=== PATIENT | female | born 2000 | race Caucasian/White ===

== ENCOUNTER 2022-08-07 21:08 | Emergency (ER) | payer OTHER ==
[2022-08-07 21:27] VITALS: BP 117/69; PULSE 95; RESP 18; TEMP 98.3; BMI 32.9
== END 2022-08-07 22:57 | disposition home or self-care (01) ==
LOC: JER 21:08
DX: R07.0 Pain in throat (principal)
CPT/HCPCS: 0241U-QW; 87651; 99283-25

== ENCOUNTER 2022-12-10 09:01 | Emergency (ER) | payer OTHER ==
[2022-12-10 09:18] VITALS: BP 127/65; PULSE 96; RESP 16; TEMP 98.5; BMI 33.8
[2022-12-10] MEDS ORDERED: FLUORESCEIN NA 1 EA STRIP OU ONE (09:55)
== END 2022-12-10 11:05 | disposition home or self-care (01) ==
LOC: JERFT 09:01
DX: H57.89 Other specified disorders of eye and adnexa (principal)
CPT/HCPCS: 99283-25

== ENCOUNTER 2023-03-17 18:09 | Emergency (ER) | payer OTHER ==
[2023-03-17 18:38] VITALS: TEMP 98.4; BMI 32.0
[2023-03-17] MEDS ORDERED: ACETAMINOPHEN 1000 MG/100 ML BAG IVPB ONE (19:38)
[2023-03-17] MEDS ORDERED: SODIUM CHLORIDE 1,000 ML IV STA (19:38)
[2023-03-17] MEDS ORDERED: ACETAMINOPHEN INJECTION 100 ML IVPB ONE (19:45)
[2023-03-17 20:03] LABS: HCG,QUALITATIVE URINE Negative
[2023-03-17 20:04] LABS: EPI CELLS 13 /uL (0-25.1); HYALINE CASTS 7 /uL (0-3.1); PH,URINE 5.5 (5.0-8.0); URINE APPEARANCE CLEAR; URINE BACTERIA 2919 /uL (0-1359); URINE BILIRUBIN NEGATIVE (NEGATIVE); URINE COLOR YELLOW; URINE GLUCOSE (UA) NEGATIVE (NEGATIVE); URINE KETONE TRACE (NEGATIVE); URINE LEUK ESTERASE 1+ (NEGATIVE); URINE NITRITE NEGATIVE (NEGATIVE); URINE PROTEIN NEGATIVE (NEGATIVE); URINE RBC 25 /uL (0-23.9); URINE WBC 135 /uL (0-25.8)
[2023-03-17 20:27] LABS: BASO % 0.4 % (0-2.0); EOS % 0.5 % (0-4.5); HEMATOCRIT 36.9 % (32.4-45.2); HEMOGLOBIN 12.6 GM/dL (10.7-15.3); LYMPH % 33.1 % (8-40); MCH 27.3 pg (25.7-33.7); MCHC 34.1 g/dl (32.0-36.0); MEAN CELL VOLUME 80.1 fl (80-96); MEAN PLT VOLUME 9.6 fl (7.5-11.1); MONO % 7.1 % (3.8-10.2); NEUT % 58.9 % (42.8-82.8); PLATELET COUNT 236 10^3/uL (134-434); RBC 4.61 M/mm3 (3.60-5.2); RDW 14.9 % (11.6-15.6); WHITE BLOOD COUNT 7.7 K/mm3 (4.0-10.0)
[2023-03-17 20:48] LABS: BLOOD UREA NITROGEN 5.8 mg/dL (7-18); POTASSIUM 3.5 mmol/L (3.5-5.1)
[2023-03-17 20:49] LABS: ALBUMIN 3.9 g/dl (3.4-5.0)
[2023-03-17 20:52] LABS: CREATININE 0.8 mg/dL (0.55-1.3)
[2023-03-17 20:53] LABS: BILIRUBIN,TOTAL 0.4 mg/dL (0.2-1); TOT PROT 6.7 g/dl (6.4-8.2)
[2023-03-18 00:36] LABS: POTASSIUM 4.4 mmol/L (3.5-5.1)
[2023-03-18 00:37] LABS: CALCIUM 8.3 mg/dL (8.5-10.1)
[2023-03-18 00:38] LABS: BLOOD UREA NITROGEN 5.9 mg/dL (7-18)
[2023-03-18 00:41] LABS: CREATININE 0.8 mg/dL (0.55-1.3)
[2023-03-18 00:56] VITALS: BP 109/56; PULSE 80; RESP 16
== END 2023-03-18 00:56 | disposition home or self-care (01) ==
LOC: JER 18:09
PROC: 3E033NZ Introduction of Analgesics, Hypnotics, Sedatives into Peripheral Vein, Percutaneous Approach (ICD-10-PCS; principal; 2023-03-17)
PROC: 3E0337Z Introduction of Electrolytic and Water Balance Substance into Peripheral Vein, Percutaneous Approach (ICD-10-PCS; 2023-03-17)
DX: R10.32 Left lower quadrant pain (principal); R11.2 Nausea with vomiting, unspecified; Z20.822 Contact with and (suspected) exposure to COVID-19
CPT/HCPCS: 0241U-QW; 36415; 74177-TC; 76830-TC; 80048; 80053; 81003; 83690; 84703; 85025; 87086; 93005; 93010; 99285-25; Q9967

== ENCOUNTER 2023-06-20 19:53 | Emergency (ER) | payer OTHER ==
[2023-06-20 20:07] VITALS: BP 121/62; PULSE 87; RESP 18; TEMP 98.1; BMI 32.0
[2023-06-20] MEDS ORDERED: ACETAMINOPHEN 500 MG TABLET (FP) PO ONE (20:46)
[2023-06-20] MEDS ORDERED: ACETAMINOPHEN 500 MG TABLET (FP) ONE (20:48)
== END 2023-06-20 21:11 | disposition home or self-care (01) ==
LOC: JERFT 19:53
PROC: 2W3KX1Z Immobilization of Left Finger using Splint (ICD-10-PCS; principal; 2023-06-20)
DX: S62.633A Displaced fracture of distal phalanx of left middle finger, initial encounter for closed fracture (principal); R22.32 Localized swelling, mass and lump, left upper limb; M79.645 Pain in left finger(s); W23.0XXA Caught, crushed, jammed, or pinched between moving objects, initial encounter
CPT/HCPCS: 73140-TC-LT-FY; 99283-25

== ENCOUNTER 2023-10-06 16:57 | Emergency (ER) | payer SELFPAY ==
[2023-10-06 17:11] VITALS: BP 120/69; PULSE 79; RESP 19; TEMP 98.6; BMI 32.0
[2023-10-06] MEDS ORDERED: ONDANSETRON 4 MG/2 ML VIAL ONE (18:13)
[2023-10-06] MEDS: SODIUM CHLORIDE 0.9% 500 ML INFUS.BAG IV ONE (18:37)
[2023-10-06] MEDS: ONDANSETRON 4 MG/2 ML VIAL IVPUSH ONE (18:38)
[2023-10-06 18:39] LABS: PH,URINE 5.5 (5.0-8.0); URINE APPEARANCE CLEAR; URINE BILIRUBIN NEGATIVE (NEGATIVE); URINE COLOR YELLOW; URINE GLUCOSE (UA) NEGATIVE (NEGATIVE); URINE KETONE NEGATIVE (NEGATIVE); URINE LEUK ESTERASE NEGATIVE (NEGATIVE); URINE NITRITE NEGATIVE (NEGATIVE); URINE PROTEIN NEGATIVE (NEGATIVE)
[2023-10-06 18:42] LABS: BASO % 0.6 % (0-2.0); EOS % 2.4 % (0-4.5); HEMOGLOBIN 13.8 GM/dL (10.7-15.3); MCH 28.4 pg (25.7-33.7); MCHC 34.5 g/dl (32.0-36.0); MEAN CELL VOLUME 82.4 fl (80-96); MEAN PLT VOLUME 8.9 fl (7.5-11.1); MONO % 7.3 % (3.8-10.2); NEUT % 62.7 % (42.8-82.8); PLATELET COUNT 277 10^3/uL (134-434); RBC 4.86 M/mm3 (3.60-5.2); RDW 13.8 % (11.6-15.6); WHITE BLOOD COUNT 7.7 K/mm3 (4.0-10.0)
[2023-10-06 19:02] LABS: POTASSIUM 4.3 mmol/L (3.5-5.1)
[2023-10-06 19:04] LABS: CALCIUM 8.9 mg/dL (8.5-10.1)
[2023-10-06 19:05] LABS: ALBUMIN 3.7 g/dl (3.4-5.0); BLOOD UREA NITROGEN 8.6 mg/dL (7-18)
[2023-10-06 19:09] LABS: BILIRUBIN,TOTAL 0.2 mg/dL (0.2-1)
== END 2023-10-06 20:42 | disposition home or self-care (01) ==
LOC: JER 16:57
PROC: 3E033NZ Introduction of Analgesics, Hypnotics, Sedatives into Peripheral Vein, Percutaneous Approach (ICD-10-PCS; principal; 2023-10-06)
DX: R10.11 Right upper quadrant pain (principal); R11.2 Nausea with vomiting, unspecified; A08.4 Viral intestinal infection, unspecified; Z20.822 Contact with and (suspected) exposure to COVID-19
CPT/HCPCS: 0241U-QW; 36415; 76705-TC; 80053; 81003; 84703; 85025; 87086; 99284-25

== ENCOUNTER 2024-02-14 14:34 | Emergency (ER) | payer OTHER ==
[2024-02-14 14:46] VITALS: BP 117/80; PULSE 87; RESP 18; TEMP 98.4; BMI 32.9
[2024-02-14] MEDS ORDERED: LORATADINE 10 MG TABLET ONE (15:47)
[2024-02-14] MEDS ORDERED: FAMOTIDINE 20 MG TABLET ONE (15:47)
[2024-02-14] MEDS: LORATADINE 10 MG TABLET PO ONE (15:51)
[2024-02-14] MEDS: FAMOTIDINE 20 MG TABLET PO ONE (15:51)
== END 2024-02-14 16:10 | disposition home or self-care (01) ==
LOC: JERFT 14:34
DX: R21 Rash and other nonspecific skin eruption (principal); T36.0X1A Poisoning by penicillins, accidental (unintentional), initial encounter
CPT/HCPCS: 99283-25

== ENCOUNTER 2024-02-25 14:24 | Emergency (ER) | payer OTHER ==
[2024-02-25 14:33] VITALS: BP 119/56; PULSE 83; RESP 19; TEMP 99.3; BMI 32.9
[2024-02-25] MEDS ORDERED: ONDANSETRON 4 MG/2 ML VIAL ONE (15:57)
[2024-02-25] MEDS ORDERED: ACETAMINOPHEN INJECTION 100 ML IVPB ONE (15:57)
[2024-02-25 16:10] LABS: BASO % 0.5 % (0-2.0); HEMATOCRIT 37.1 % (32.4-45.2); LYMPH % 24.3 % (8-40); MCH 28.3 pg (25.7-33.7); MEAN CELL VOLUME 80.8 fl (80-96); MEAN PLT VOLUME 8.7 fl (7.5-11.1); MONO % 6.4 % (3.8-10.2); NEUT % 66.8 % (42.8-82.8); PLATELET COUNT 270 10^3/uL (134-434); RBC 4.59 M/mm3 (3.60-5.2); URINE APPEARANCE CLEAR; URINE BILIRUBIN NEGATIVE (NEGATIVE); URINE COLOR YELLOW; URINE GLUCOSE (UA) NEGATIVE (NEGATIVE); URINE KETONE NEGATIVE (NEGATIVE); URINE LEUK ESTERASE NEGATIVE (NEGATIVE); URINE NITRITE NEGATIVE (NEGATIVE); URINE PROTEIN NEGATIVE (NEGATIVE); WHITE BLOOD COUNT 7.8 K/mm3 (4.0-10.0)
[2024-02-25] MEDS: ACETAMINOPHEN 1000 MG/100 ML BAG IVPB ONE (16:12)
[2024-02-25 16:13] LABS: HCG,QUALITATIVE URINE Negative
[2024-02-25] MEDS: ONDANSETRON 4 MG/2 ML VIAL IVPUSH ONE (16:13)
[2024-02-25] MEDS: LACTATED RINGERS SOLUTION 1000 ML INFUS.BAG IV ONE (16:13)
[2024-02-25] MEDS: SODIUM CHLORIDE 0.9% 500 ML INFUS.BAG IV ONE (16:13)
[2024-02-25 16:22] LABS: POTASSIUM 3.8 mmol/L (3.5-5.1)
[2024-02-25 16:24] LABS: ALBUMIN 3.6 g/dl (3.4-5.0); BLOOD UREA NITROGEN 9.4 mg/dL (7-18); CALCIUM 9.3 mg/dL (8.5-10.1)
[2024-02-25 16:27] LABS: CREATININE 0.8 mg/dL (0.55-1.3)
[2024-02-25 16:30] LABS: BILIRUBIN,TOTAL 0.4 mg/dL (0.2-1); TOT PROT 6.8 g/dl (6.4-8.2)
== END 2024-02-25 17:17 | disposition home or self-care (01) ==
LOC: JER 14:24
PROC: 3E033NZ Introduction of Analgesics, Hypnotics, Sedatives into Peripheral Vein, Percutaneous Approach (ICD-10-PCS; principal; 2024-02-25)
PROC: 3E033GC Introduction of Other Therapeutic Substance into Peripheral Vein, Percutaneous Approach (ICD-10-PCS; 2024-02-25)
DX: R50.9 Fever, unspecified (principal); R09.81 Nasal congestion; R53.83 Other fatigue; M79.10 Myalgia, unspecified site; R63.0 Anorexia; B34.9 Viral infection, unspecified; R53.1 Weakness; R11.2 Nausea with vomiting, unspecified; Z20.822 Contact with and (suspected) exposure to COVID-19
CPT/HCPCS: 0241U-QW; 36415; 80053; 81003; 84703; 85025; 87086; 99284-25; J0131

== ENCOUNTER 2024-08-31 07:58 | Emergency (ER) | payer OTHER ==
[2024-08-31 08:19] VITALS: BMI 32.9
[2024-08-31] MEDS ORDERED: ACETAMINOPHEN INJECTION 100 ML ONE (08:39)
[2024-08-31] MEDS ORDERED: ONDANSETRON 4 MG/2 ML VIAL ONE (08:40)
[2024-08-31] MEDS: ACETAMINOPHEN 500 MG TABLET (FP) PO ONE (09:17)
[2024-08-31] MEDS: SODIUM CHLORIDE 0.9% 500 ML INFUS.BAG IV ONE (09:17)
[2024-08-31] MEDS: ONDANSETRON 4 MG/2 ML VIAL IVPUSH ONE (09:17)
[2024-08-31 09:20] LABS: BASO % 0.5 % (0-2.0); EOS % 0.4 % (0-4.5); HEMATOCRIT 39.5 % (32.4-45.2); HEMOGLOBIN 13.6 GM/dL (10.7-15.3); LYMPH % 9.8 % (8-40); MCH 27.8 pg (25.7-33.7); MCHC 34.5 g/dl (32.0-36.0); MEAN CELL VOLUME 80.7 fl (80-96); MEAN PLT VOLUME 8.5 fl (7.5-11.1); MONO % 4.6 % (3.8-10.2); NEUT % 84.7 % (42.8-82.8); PLATELET COUNT 260 10^3/uL (134-434); RDW 14.3 % (11.6-15.6)
[2024-08-31 09:24] LABS: VENOUS BASE EXCESS -4.3 mmol/L (-2-2); VENOUS O2 SATURATION 95.1 % (70-80); VENOUS PH 7.417 (7.310-7.410)
[2024-08-31 09:30] LABS: INR 1.08 (0.83-1.09); PROTHROMBIN TIME (PATIENT) 11.9 SEC (9.7-13.0)
[2024-08-31 09:32] LABS: ACTIVATED PTT 26.1 SECONDS (25.2-36.5)
[2024-08-31 09:59] LABS: CALCIUM 9.1 mg/dL (8.5-10.1)
[2024-08-31 10:00] LABS: ALBUMIN 3.6 g/dl (3.4-5.0); BLOOD UREA NITROGEN 9.1 mg/dL (7-18)
[2024-08-31 10:05] LABS: BILIRUBIN,TOTAL 0.2 mg/dL (0.2-1); TOT PROT 6.9 g/dl (6.4-8.2)
[2024-08-31 10:34] LABS: EPI CELLS 4 /uL (0-25.1); HYALINE CASTS 1 /uL (0-3.1); URINE APPEARANCE CLEAR; URINE BACTERIA 16 /uL (0-1359); URINE BILIRUBIN NEGATIVE (NEGATIVE); URINE COLOR YELLOW; URINE GLUCOSE (UA) NEGATIVE (NEGATIVE); URINE KETONE NEGATIVE (NEGATIVE); URINE LEUK ESTERASE NEGATIVE (NEGATIVE); URINE NITRITE NEGATIVE (NEGATIVE); URINE PROTEIN 1+ (NEGATIVE); URINE RBC 6 /uL (0-23.9); URINE UROBILINOGEN 0.2 mg/dL (0.2-1.0); URINE WBC 16 /uL (0-25.8)
[2024-08-31] MEDS ORDERED: VANCOMYCIN 1 GM PREMIX (F) 1 GM/200 ML BAG ONE (12:05)
[2024-08-31] MEDS ORDERED: CEFEPIME HCL/D5W 2 GM/50 ML BAG IVPB ONE (12:05)
[2024-08-31] MEDS: CEFEPIME HCL 2 GM VIAL (RESTRICTED TO ID) IVPB ONE (12:12)
[2024-08-31 12:15] VITALS: BP 107/64; PULSE 77; RESP 16; TEMP 98.1
[2024-08-31 12:41] LABS: HIV INTERPRETATION NEGATIVE (NEGATIVE)
[2024-08-31] MEDS: VANCOMYCIN 1,000 MG in DEXTROSE 5%-WATER - 250 ML IVPB ONE (12:44)
== END 2024-08-31 14:37 | disposition home or self-care (01) ==
LOC: JER 07:58
PROC: 3E033GC Introduction of Other Therapeutic Substance into Peripheral Vein, Percutaneous Approach (ICD-10-PCS; principal; 2024-08-31)
PROC: 3E033GC Introduction of Other Therapeutic Substance into Peripheral Vein, Percutaneous Approach (ICD-10-PCS; 2024-08-31)
PROC: 3E033GC Introduction of Other Therapeutic Substance into Peripheral Vein, Percutaneous Approach (ICD-10-PCS; 2024-08-31)
DX: R50.9 Fever, unspecified (principal); B34.9 Viral infection, unspecified; R10.32 Left lower quadrant pain; M79.10 Myalgia, unspecified site; R11.2 Nausea with vomiting, unspecified; R68.83 Chills (without fever); Z20.822 Contact with and (suspected) exposure to COVID-19
CPT/HCPCS: 0241U-QW; 36415; 71045-TC-FY; 74177-TC; 80053; 81003; 82803; 83605; 84484; 84703; 85025; 85610; 85730; 86803; 86850; 86900; 86901; 87040; 87086; 87389; 93005; 93010; 99285-25